=== PATIENT | male | born 1940 | race African-American/Black ===

== ENCOUNTER 2017-10-10 23:37 | Emergency (ER) | payer OTHER ==
[~2017-10-10] VITALS: Ht 188 cm; Wt 100.0 kg
[2017-10-11] MEDS ORDERED: NITROGLYCERIN 0.4MG TABLET SL SL ONE ×2 (00:45→03:30)
[2017-10-11] MEDS ORDERED: FUROSEMIDE 40MG/4ML VIAL IVP ONE (01:00)
[2017-10-11] MEDS ORDERED: ASPIRIN 81MG TABLET PO ONE (01:00)
[2017-10-11 01:36] LABS: HEMATOCRIT. 29.5 % (42.0-52.0); HEMOGLOBIN. 10.1 g/dL (14.0-18.0); MEAN CORPUSCULAR HEMOGLOBIN 30.8 pg (28.0-32.0); MEAN CORPUSCULAR VOLUME 90.1 fL (80.0-94.0); MEAN PLATELET VOLUME 8.4 fl (7.4-10.4); PLATELET 322 x1000/uL (130-400); RED BLOOD CELL COUNT 3.28 mill/uL (4.7-6.1); RED CELL DISTRIBUTION WIDTH 13.5 % (11.6-14.6)
[2017-10-11 01:45] LABS: INR 2.2; PROTHROMBIN TIME 22.8 sec (9.4-11.6)
[2017-10-11] MEDS ORDERED: NITROGLYCERIN OINT 1GM/INCH UDPKT TD ONE (02:00)
[2017-10-11 02:41] LABS: CHLORIDE 98 mEq/L (98-107)
[2017-10-11 04:24] LABS: PLATELET ESTIMATE NORMAL
[2017-10-11 06:30] VITALS: BP 128/78
== END 2017-10-11 06:43 | disposition short-term general hospital (02) ==
LOC: ER 23:37 → CANBEDREQ 10-11 07:53
DX: I50.9 Heart failure, unspecified (principal); I11.0 Hypertensive heart disease with heart failure; E11.9 Type 2 diabetes mellitus without complications; R06.03 Acute respiratory distress; I50.1 Left ventricular failure, unspecified; Z79.82 Long term (current) use of aspirin
CPT/HCPCS: 36415; 71045; 80053; 83880; 84484; 85025; 85610; 87040; 93005; 96374; 99291; J1940; Z7610